=== PATIENT | female | born 1965 | race Caucasian/White ===

== ENCOUNTER 2016-10-18 07:59 | Emergency (ER) | payer BC ==
[~2016-10-18] VITALS: Ht 152.4 cm; Wt 62.9 kg
[~2016-10-18 07:59] MED LIST: ADDERALL10 MG PO; ADDERALL15 MG PO; AMPHETAMINE SAL15 MG PO; ASPIR-LOW81 MG PO; ASPIRIN325 MG PO; CALCIUM PO; DOXYCYCLINE HY100 MG PO; GINSENG100 M2 PO; MAGNESIUM250 MG PO; MOTRIN800 MG PO; MULTIPLE VITAM1 EACH PO; MULTIVITAMIN1 EAC2 PO; NEILMED SINUS1 EACH NS; NORCO 5/3251 TABLET PO; PANTOPRAZOLE SO40 MG PO; SYNTHROID50 MCG PO; ULTRAM50 MG PO; VITAMIN B-6100 MG PO; VITAMIN C1000 MG PO; WELLBUTRIN SR100 MG PO; WELLBUTRIN SR150 MG PO; ZITHROMAX Z-PA250 MG PO; ZOFRAN ODT4 MG PO; ZOFRAN8 MG PO; ZYRTEC10 M2 PO
[2016-10-18 08:52] LABS: MCH 29.6 PG (29.0-34.0); MCHC 33.7 G/DL (30.0-36.0); MCV 87.8 FL (83-99); MEAN PLAT.VOLUME 10.4 uM^3 (9.5-12.4); PLATELET COUNT 252 K/uL (156-360); RBC DIS.WIDTH-CV 12.7 % (11.8-14.6); RBC DIS.WIDTH-SD 40.9 % (39-53); RED BLOOD COUNT 4.67 M/uL (3.80-5.20); WHITE BLOOD COUNT 5.1 K/uL (4.1-10.2)
[2016-10-18 09:00] LABS: CHLORIDE 106 mEq/L (99-109); POTASSIUM 4.4 mEq/L (3.7-5.4); SODIUM 140 mEq/L (136-147)
[2016-10-18 09:03] LABS: GLUCOSE 84 mg/dL (70-99)
[2016-10-18 09:04] LABS: ANION GAP 7 MEQ/L (2-14)
[2016-10-18 09:05] LABS: TOTAL BILIRUBIN 0.5 mg/dL (0.0-1.0)
[2016-10-18 09:06] LABS: ALKALINE PHOSPHATASE 67 IU/L (3-129); GFR ESTIMATE (CALCULATED) > 59 mL/min/
[2016-10-18 09:07] LABS: UREA NITROGEN (BUN) 16 mg/dL (9-23)
[2016-10-18 09:13] LABS: TROP-I INTERPRETATION NEGATIVE; TROPONIN-I < 0.01 ng/mL (0.0-0.30)
[2016-10-18 10:12] LABS: ADD MIUA? NO; BILIRUBIN NEGATIVE; BLOOD NEGATIVE; COLOR STRAW ((YELLOW)); GLUCOSE (STRIP) NEGATIVE; KETONES NEGATIVE; LEUKOCYTES NEGATIVE; NITRITE NEGATIVE; PROTEIN (STRIP) NEGATIVE; SPECIFIC GRAVITY 1.006 (1.000-1.030); UCUL ADDED? NO; UROBILINOGEN 0.2 MG/DL (0.2-1.0)
[2016-10-18 10:24] LABS: D-DIMER ELISA 0.16 mg/L FEU (< 0.57)
[2016-10-18] MEDS ORDERED: NAPROSYN500 MG PO (11:11)
[2016-10-18] MEDS ORDERED: FLEXERIL10 MG PO (11:11)
[2016-10-18 11:37] VITALS: BP 115/79
== END 2016-10-18 11:43 | disposition home or self-care (01) ==
LOC: EME 07:59
PROVIDERS: Nurse Practitioner Family
DX: J06.9 Acute upper respiratory infection, unspecified (principal); M79.1 Myalgia; R53.83 Other fatigue; I10 Essential (primary) hypertension
CPT/HCPCS: 71020; 80048; 80053; 81003; 84484; 85027; 85379; 93005; 99281; 99285

== ENCOUNTER 2017-01-11 13:28 | Emergency (ER) | payer BC ==
[~2017-01-11] VITALS: Ht 152.4 cm; Wt 61.6 kg
[~2017-01-11 13:28] MED LIST changes: +FLEXERIL10 MG PO; +NAPROSYN500 MG PO
[2017-01-11 14:31] LABS: HEMATOCRIT 43.5 % (36.0-46.0); MCH 28.9 PG (29.0-34.0); MCHC 33.3 G/DL (30.0-36.0); MCV 86.8 FL (83-99); MEAN PLAT.VOLUME 10.4 uM^3 (9.5-12.4); PLATELET COUNT 309 K/uL (156-360); RBC DIS.WIDTH-CV 12.1 % (11.8-14.6); RBC DIS.WIDTH-SD 38.6 % (39-53); RED BLOOD COUNT 5.01 M/uL (3.80-5.20); WHITE BLOOD COUNT 6.5 K/uL (4.1-10.2)
[2017-01-11 14:40] LABS: CHLORIDE 103 mEq/L (99-109); POTASSIUM 4.5 mEq/L (3.7-5.4); SODIUM 140 mEq/L (136-147)
[2017-01-11 14:41] LABS: ADD MIUA? YES; BILIRUBIN NEGATIVE; BLOOD NEGATIVE; COLOR YELLOW ((YELLOW)); GLUCOSE (STRIP) NEGATIVE; KETONES NEGATIVE; LEUKOCYTES NEGATIVE; NITRITE NEGATIVE; PROTEIN (STRIP) NEGATIVE; UROBILINOGEN 0.2 MG/DL (0.2-1.0)
[2017-01-11 14:43] LABS: GLUCOSE 84 mg/dL (70-99)
[2017-01-11 14:44] LABS: BACTERIA RARE /HPF; EPITHELIAL CELLS RARE /HPF; MUCUS TRACE /LPF; RED BLOOD CELLS 0-5 /HPF (0-5); UCUL ADDED? NO; WHITE BLOOD CELLS 0-5 /HPF (0-5)
[2017-01-11 14:44] LABS: ANION GAP 7 MEQ/L (2-14)
[2017-01-11 14:45] LABS: TOTAL BILIRUBIN 0.8 mg/dL (0.0-1.0)
[2017-01-11 14:46] LABS: ALKALINE PHOSPHATASE 70 IU/L (3-129); GFR ESTIMATE (CALCULATED) > 59 mL/min/
[2017-01-11 14:47] LABS: UREA NITROGEN (BUN) 15 mg/dL (9-23)
[2017-01-11 14:56] LABS: QUANTITATIVE HCG 5.3 MIU/ML
[2017-01-11] MEDS ORDERED: ZOFRAN ODT4 MG PO (19:00)
[2017-01-11] MEDS ORDERED: PERCOCET 5/31 TABLET PO (19:00)
[2017-01-11 19:38] VITALS: BP 118/82
== END 2017-01-11 19:43 | disposition home or self-care (01) ==
LOC: EME 13:28
DX: R10.31 Right lower quadrant pain (principal); R19.7 Diarrhea, unspecified; I10 Essential (primary) hypertension; Z90.49 Acquired absence of other specified parts of digestive tract
CPT/HCPCS: 74177; 80053; 81003; 84702; 85027; 99281; 99285; J2270; J2405; J7030